=== PATIENT | female | born 1960 | race American Indian/Alaskan Native ===

== ENCOUNTER 2018-02-06 13:06 | Inpatient (IN) | payer MEDICAID ==
--- NOTE | 2018-02-06 13:28 | C.PDOC ---
History Of Present Illness 57 F w/ hx of hysterectomy, etoh + marijauan use p/w request for detox. Pt notes last drank benjamin goran this morning. No SI or HI. No chest pain or shortness of breath. No abdominal pain. No constipation or diarrhea. No dark or bloody stool. No headache, nausea or vomiting. No fever, chills or night sweats. No constipation or diarrhea. No other complaints. Time Seen by Provider: 02/06/18 13:28 Chief Complaint (Nursing): Substance Abuse Past Medical History Vital Signs: Last Vital Signs Temp 97.9 F 02/06/18 13:19 Pulse 77 02/06/18 13:19 Resp 18 02/06/18 13:19 BP 119/79 02/06/18 13:19 Pulse Ox 100 02/06/18 13:19 Family History: States: Unknown Family Hx - Social History Hx Alcohol Use: Yes Hx Substance Use: Yes - Immunization History Hx Tetanus Toxoid Vaccination: No Hx Influenza Vaccination: No Hx Pneumococcal Vaccination: No Review Of Systems Constitutional: Negative for: Fever, Chills, Sweats, Weakness, Malaise Eyes: Negative for: Pain, Eyelid Inflammation ENT: Negative for: Ear Pain, Ear Discharge, Nose Pain, Nose Congestion, Mouth Pain Cardiovascular: Negative for: Chest Pain, Palpitations, Edema Respiratory: Negative for: Cough, Shortness of Breath, SOB with Excertion, Wheezing Gastrointestinal: Negative for: Nausea, Vomiting, Abdominal Pain, Diarrhea, Constipation, Melena, Hematochezia, Hematemesis Genitourinary: Negative for: Dysuria, Frequency, Incontinence, Hematuria, Vaginal Discharge, Vaginal Bleeding, Pelvic Pain, Rash Musculoskeletal: Negative for: Neck Pain, Shoulder Pain, Back Pain Skin: Negative for: Rash, Lesions Neurological: Negative for: Weakness, Numbness, Incoordination, Change in Speech, Seizures, Headache Psych: Negative for: Anxiety, Depression, Psychosis, Suicidal ideation Physical Exam - Physical Exam Appears: Well, Non-toxic, No Acute Distress Skin: Normal Color Head: Atraumatic, Normacephalic Eye(s): bilateral: Normal Inspection, PERRL, EOMI Nose: Normal Lips: Normal Appearing Neck: Normal, Normal ROM, Supple, Other (no meningeal signs) Chest: Symmetrical Cardiovascular: Rhythm Regular Respiratory: Normal Breath Sounds Gastrointestinal/Abdominal: Normal Exam Back: Normal Inspection, No CVA Tenderness Extremity: Normal ROM, No Tenderness Extremity: Bilateral: Atraumatic Neurological/Psych: Oriented x3, Normal Speech, Normal Cognition, Normal Cranial Nerves, No Cerebellar Signs, Normal Motor Gait: Steady Extremity: Right: No Drift, Left: No Drift, Upper: No Drift, Lower: No Drift ED Course And Treatment - Laboratory Results Result Diagrams: 02/06/18 14:05 02/06/18 14:05 O2 Sat by Pulse Oximetry: 100 Medical Decision Making Medical Decision Makin yr old female p/w request for detox from etoh and marijuana use. No meningeal signs, Neuro exam unremarkable. Pending Crisis Eval and Medical clearance. EKG 68 NSR. No stemi 1552 etoh 168 labs otherwise largely unremarkable: AST elevation > ALT elevation c/w ETOH No RUQ pain. Walking well, in NAD, no signs of withdrawal or unstable gait. Medically clear accepted by Dr. New For detox per crisis. Pt in NAD and agreeable. Disposition - Disposition Disposition Time: 15:55 Condition: GOOD Forms: [facility] (Burmese) - Clinical Impression Clinical Impression: Desire for detoxification
[2018-02-06 14:21] LABS: BASO # 0.1 K/uL (0.0-0.2); BASO % 1.3 % (0.0-2.0); EOS # 0.1 K/uL (0.0-0.7); EOS % 0.8 % (0.0-4.0); HEMOGLOBIN 12.3 g/dL (11.0-16.0); LYMPH % 48.6 % (20.0-40.0); MEAN CELL VOLUME 94.1 fL (81.0-99.0); MEAN CORPUSCULAR HEMOGLOBIN 31.7 pg (27.0-31.0); MEAN CORPUSCULAR HGB CONC 33.7 g/dL (33.0-37.0); MEAN PLATELET VOLUME 10.5 fL (7.2-11.7); MONO # 0.6 K/uL (0.0-0.8); MONO % 9.2 % (0.0-10.0); NEUT # 2.4 K/uL (1.8-7.0); NEUT % 40.1 % (50.0-75.0); NRBC % 0.1 % (0.0-2.0); RBC 3.88 Mil/uL (3.80-5.20); RED CELL DISTRIBUTION WIDTH 14.8 % (11.5-14.5); WHITE BLOOD COUNT 6.1 K/uL (4.8-10.8)
[2018-02-06 14:32] LABS: ACETAMINOPHEN < 10.0 ug/mL (10.0-30.0); SALICYLATE < 1.0 mg/dL 1
[2018-02-06 14:34] LABS: ALBUMIN 4.5 g/dL (3.5-5.0); ALT/SGPT 76 U/L (9-52); AST/SGOT 107 U/L (14-36); BLOOD UREA NITROGEN 12 mg/dL (7-17); GFR NON-AFRICAN AMERICAN > 60
[2018-02-06 14:36] LABS: HCG,QUALITATIVE URINE NEGATIVE (NEGATIVE)
[2018-02-06 14:39] LABS: SQUAMOUS EPITHIAL 1 /hpf (0-5); URINE BILIRUBIN NEGATIVE (NEGATIVE); URINE BLOOD NEGATIVE (NEGATIVE); URINE CLARITY Clear (Clear); URINE COLOR Straw (YELLOW); URINE GLUCOSE (UA) NORMAL (Normal); URINE LEUKOCYTE ESTERASE NEG Leu/uL (Negative); URINE PROTEIN NEGATIVE (NEGATIVE); URINE UROBILINOGEN NORMAL mg/dL (0.2-1.0)
[2018-02-06 14:55] LABS: BARBITURATES, UR NEGATIVE (NEGATIVE); BENZODIAZEPINES, UR NEGATIVE (NEGATIVE); OPIATES, UR NEGATIVE (NEGATIVE); PHENCYCLIDINE, UR NEGATIVE (NEGATIVE)
--- NOTE | 2018-02-06 16:09 | PCM.BM ---
<Rhiannon Astudillo - Last Filed: 02/06/18 16:08> Treatment Plan Problems - Problems identified on initial assessmt Potential for alcohol withdrawal Date Initiated: 02/06/18 Time Initiated: 16:09 Assessment reference: NA Status: Active Treatment assets and liabiliti Patient Assests: ADL independent, negotiates basic needs, cognitively intact Patient Liabilities: substance abuse (THC, ETOH) - Milieu Protocol Maintain good personal hygiene: daily Encourage regular showers, daily Remind patient to perform daily oral care, daily Assist patient to perform ADL's Conduct patient checks and document Observation sheet: Q15 minutes Maintain personal safety: every shift Educate patient to report safety concerns to staff, every shift Monitor environment for contraband/sharps Medication safety: Monitor for expected outcome, potential side effects: every shift, Assess barriers to learning: every shift, Assess readiness for medication education: every shift <Noemi Saldana - Last Filed: 02/08/18 14:08> Family Contact Family involvement: Famliy/SO not involved - Goals for Treatment Patient goals for treatment: Complete detox and transition to an IOP. Discharge/Continuing Care - Education Needs Education Needs: Patient Medication, Patient Diagnosis/Disease Process, Patient Coping Skills, Patient Anger Management skills, Patient Placement options, Patient Community resources - Discharge Discharge Criteria: No longer exhibiting s/s of withdrawal, Reduction of target symptoms Discharge to:: Home - Treatment Team Participation Patient/Family/SO Statement: 02/08/18 14:09 "I guess I'll try an IOP in [place]..." Discussed with Family/SO: No Was Patient/Family/SO present at Treatment Team Meeting: Yes <Carmen Coffman - Last Filed: 02/10/18 12:49> - Diagnosis (1) Alcohol use disorder, severe, dependence Status: Acute Interventions: 02/08/18 12:49 * Assess 7x/week regarding severity of withdrawal * Educate regarding risks, benefits, side effects and alternatives of medications * Use Motivational Interviewing for abstinence * Use CBT for relapse prevention * Medication management for withdrawal symptoms * Encourage medication assisted treatment *
[2018-02-07] MEDS: Multiple Vitamins Tab PO SCH (09:17)
--- NOTE | 2018-02-07 12:07 | CARD ---
APPROVED REPORT Date of service: 02/06/2018 EKG Measurement Heart [id number] <Conclusion> Normal sinus rhythm Nonspecific ST abnormality Abnormal ECG
--- NOTE | 2018-02-07 15:00 | PCM.PSYCH ---
Initial Psychiatric Evaluation - Initial Psychiatric Evaluation Type of Admission: Voluntary Legal Status: Capacity History of Present Illness and Precipitating Events: Patient is a 57 year old female who presents to the office for a drinking problem. Patient states that she started drinking at the age of 15. She says she drinks on average, 1/5 th a bottle of vodka a day. The longest time she has not consumed alcohol was last year, and lasted for about 4 months. She reports that she has been to detox 3 times, and has been to rehab twice in her life. She states that she smokes marijuana "all the time". She has a prior history of cocaine abuse. She currently smokes a pack of cigarettes a day. The pt reports alcohol-withdrawal sxs She has a past psychiatric history of schizophrenia. Her family psychiatric history is positive for alcohol use. She currently is single, lives alone, and has one adult child who is 40 years old. She does not work and is on disability for her psychiatric issues. Her past medical history is significant for a tumor found on her liver. She is not sure what's going on with her oncological treatment. Current Medications: Active Medications Generic Name Dose Route Start Last Admin Trade Name Freq PRN Reason Stop Dose Admin Folic Acid 1 mg 02/07/18 10:00 02/07/18 09:17 Folic Acid PO 1 mg DAILY REN Administration Guaifenesin 200 mg 02/07/18 14:38 Robitussin PO Q4H PRN Cough and congestion Lorazepam 1 mg 02/06/18 16:39 Ativan PO Q4H PRN Symptoms of alcohol withdrawl Lorazepam 2 mg 02/07/18 10:00 02/07/18 09:17 Ativan PO 02/11/18 09:59 2 mg Q6H REN Administration Taper Mirtazapine 30 mg 02/06/18 22:00 02/06/18 21:27 Remeron PO 30 mg HS REN Administration Multivitamins 1 tab 02/07/18 10:00 02/07/18 09:17 Hexavitamin PO 1 tab DAILY REN Administration Nicotine 1 patch 02/07/18 14:45 02/07/18 14:51 Nicoderm Cq TD 1 patch DAILY REN Administration Quetiapine Fumarate 300 mg 02/06/18 22:00 02/06/18 21:20 Seroquel PO 300 mg HS REN Administration Thiamine HCl 100 mg 02/07/18 10:00 02/07/18 09:17 Vitamin B1 Tab PO 100 mg DAILY REN Administration Past Psychiatric History - Past Psychiatric History Previous Treatment History: Inpatient Pertinent Medical Hx (Current Medical&Sleep Prob, Allergies): Allergies Allergy/AdvReac Type Severity Reaction Status Date / Time No Known Allergies Allergy Unverified 02/06/18 13:17 Mirtazapine [Remeron Soltab] 45 mg PO DAILY 02/06/18 QUEtiapine [SEROquel] 200 mg PO DAILY 02/06/18 Review of Systems - Neurological Neurological: UNREMARKABLE - Psychiatric Psychiatric: Abnormal Sleep Pattern, Anhedonia, Anxiety, Depression, Difficulty Concentrating, Mood Swings, Paranoia. absent: Hallucinations, Homicidal Ideation, Suicidal Ideation Mental Status Examination - Personal Presentation Personal Presentation: Looks older than stated age - Affect Affect: Blunted - Motor Activity Motor Activity: Calm - Reliability in Providing Information Reliability in Providing Information: Fair - Speech Speech: Organized (slowed) - Mood Mood: Depressed, Anxious - Formal Thought Process Formal Thought Process: No Impairment - Cognitive Functions Orientation: Person, Place, Situation, Time Sensorium: Alert Attention/Concentration: Easily distracted Estimate of Intelligence: Average Judgement: Intact, as evidence by: Insight regarding need for hospitalization Memory: Recent intact, as evidence by: Ability to recall events of the day, Remote impaired as evidenced by: Inability to recall sig life events - Risk Risk: Withdrawal, Diminished functioning - Strength & Assets Inventory Strength & Assets Inventory: Cooperative ( ) - Limitations Limitations: Living alone, Other DSM 5 DX - DSM 5 DSM 5 Diagnosis: Alcohol withdrawal Alcohol use d/o - severe Cannabis use d/o - severe Schizophrenia, chronic r/o schizoaffective d/o - depressed - Recommended/Plan of Treatment Treatment Recommendations and Plan of Treatment: Ativan detox Seroquel for schiz. Remeron for depression As needed meds All risks discussed (of meds) and she agreed and understood Attend groups and activies Rehab or IOP referral Naltrexone if agrees 33 min Projected ELOS: 4-5 days
[2018-02-07] MEDS: guaiFENesin 200 mg/10 ml Syrup UD PO PRN (20:22)
[2018-02-08] MEDS: Multiple Vitamins Tab PO SCH (09:10)
[2018-02-08] MEDS: guaiFENesin 200 mg/10 ml Syrup UD PO PRN (13:40)
[2018-02-08] MEDS ORDERED: Vitamins A & D Oint UD Foilpak TOP PRN (16:25)
[2018-02-09] MEDS: guaiFENesin 200 mg/10 ml Syrup UD PO PRN ×3 (06:11→21:10)
[2018-02-09] MEDS: Multiple Vitamins Tab PO SCH (09:42)
[2018-02-10] MEDS: Multiple Vitamins Tab PO SCH (09:36)
--- NOTE | 2018-02-10 12:51 | PCM.PYCHPN ---
Psychiatric Progress Note - Psychiatric Progress Note Patient seen today, length of contact: 16 min Patient Chief Complaint: "Not good" Problems Identified/Issues Discussed: The pt is seen, chart reviewed, case discussed with staff. The pt is compliant with medications and reports no side-effects. Symptoms are improving but needs more time to stabilize. Very fatigued, not sleeping well but also dizzy in am After care discussed, support and psychoeducation given. Medication Change: Yes (detox adjusted) Medical Record Reviewed: Yes Mental Status Examination - Cognitive Function Orientation: Person, Place, Situation, Time Memory: Impaired Attention: Poor Concentration: Poor Association: WNL Fund of Knowledge: Poor - Mood Mood: Depressed, Anxious - Affect Affect: Blunted - Speech Speech: Soft - Formal Thought Process Formal Thought Process: No Impairment - Suicidal Ideation Suicidal Ideation: No - Homicidal Ideation Homicidal Ideation: No Goal/Treatment Plan - Goal/Treatment Plan Need for Continued Stay: Severe depression anxiety, Discharge may exacerbated symptoms, Severe functional impairment Progress Toward Problem(s) and Goals/Treatment Plan: Ativan detox Seroquel for schiz. Remeron for depression As needed meds All risks discussed (of meds) and she agreed and understood Attend groups and activies Rehab or IOP referral Naltrexone if agrees
[2018-02-10 14:30] VITALS: RESP 18
--- NOTE | 2018-02-10 15:46 | PCM.PYCHPN ---
Psychiatric Progress Note - Psychiatric Progress Note Patient seen today, length of contact: 16 min Medication Change: No (detox adjusted) Medical Record Reviewed: Yes Mental Status Examination - Cognitive Function Orientation: Person, Place, Situation, Time Memory: Impaired Attention: Poor Concentration: Poor Association: WNL Fund of Knowledge: Poor - Mood Mood: Depressed, Anxious - Affect Affect: Blunted - Speech Speech: Soft - Formal Thought Process Formal Thought Process: No Impairment - Suicidal Ideation Suicidal Ideation: No - Homicidal Ideation Homicidal Ideation: No Goal/Treatment Plan - Goal/Treatment Plan Need for Continued Stay: Severe depression anxiety, Discharge may exacerbated symptoms, Severe functional impairment
[2018-02-10] MEDS: guaiFENesin 200 mg/10 ml Syrup UD PO PRN (17:24)
--- NOTE | 2018-02-10 17:35 | CP.PCM.CON ---
<Destiney Gonzalez - Last Filed: 02/10/18 18:12> History of Present Illness - History of Present Illness History of Present Illness: PGY-[address] Perez's service Patient is a 57 yo female with past medical history of Hepatitis C, liver tumor, substance abuse, tobacco use disorder, schizoaffective and schizophrenia admitted to psych unit for alcohol detox. Patient reports ongoing chest pain for past two days. Patient states the pain goes down her arms at times with nausea. Patient states she has no shortness of breath associated with these episodes, diaphoresis, or shortness of breath. Patient states it feels like a pressure like pain located left of the 3rd intercostal space. Patient states that she has never had similar episodes in the past. Patient states the pain lasted only a minute or two in the shower when it first started. PMH- Hepatitis C, liver tumor, substance abuse, tobacco use disorder, schizoaffective and schizophrenia PSH- Denies Allergies- NKDA Meds- Denies FH- Mom (DM, from cancer); Father ( from cancer) Social: 40 pack year tobacco history, 1/5th of vodka a day, admits to marijuana and prior cocain use Review of Systems - Review of Systems Review of Systems: 12 point ROS noted and listed as in HPI Past Patient History - Past Medical History & Family History Past Medical History?: Yes - Past Social History Smoking Status: Heavy Smoker > 10 Cigarettes Daily - CARDIAC Hx Cardiac Disorders: No (Patient denied) Hx Hypertension: No (Patient denied) - PULMONARY Hx Tuberculosis: No (Patient denied) - NEUROLOGICAL HX Cerebrovascular Accident: No (Patient denied) Hx Seizures: No (Patient denied) - HEMATOLOGICAL/ONCOLOGICAL Hx Cancer: No (Patient denied) Hx Human Immunodeficiency Virus (HIV): No (Patient denied) - MUSCULOSKELETAL/RHEUMATOLOGICAL Hx Falls: No - GASTROINTESTINAL Other/Comment: "bad liver" - GENITOURINARY/GYNECOLOGICAL Hx Sexually Transmitted Disorders: No (Patient denied) - PSYCHIATRIC Hx Substance Use: Yes - ANESTHESIA Hx Anesthesia: Yes Hx Anesthesia Reactions: No Meds Allergies/Adverse Reactions: Allergies Allergy/AdvReac Type Severity Reaction Status Date / Time No Known Allergies Allergy Unverified 02/06/18 13:17 - Medications Medications: Current Medications Folic Acid (Folic Acid) 1 mg PO DAILY REN Last Admin: 02/10/18 09:36 Dose: 1 mg Guaifenesin (Robitussin) 200 mg PO Q4H PRN PRN Reason: Cough and congestion Last Admin: 02/10/18 17:24 Dose: 200 mg Lorazepam (Ativan) 1 mg PO Q4H PRN PRN Reason: Symptoms of alcohol withdrawl Last Admin: 02/09/18 06:11 Dose: 1 mg Lorazepam (Ativan) 1 mg PO BID [facility] Stop: 02/11/18 10:01 Last Admin: 02/10/18 17:24 Dose: 1 mg Mirtazapine (Remeron) 30 mg PO HS [facility] Last Admin: 02/09/18 21:18 Dose: 30 mg Multivitamins (Hexavitamin) 1 tab PO DAILY [facility] Last Admin: 02/10/18 09:36 Dose: 1 tab Nicotine (Nicoderm Cq) 1 patch TD DAILY [facility] Last Admin: 02/10/18 09:36 Dose: 1 patch Quetiapine Fumarate (Seroquel) 200 mg PO HS [facility] Last Admin: 02/09/18 21:10 Dose: 200 mg Thiamine HCl (Vitamin B1 Tab) 100 mg PO DAILY [facility] Last Admin: 02/10/18 09:36 Dose: 100 mg Vitamin A (Vitamin A & D Oint Ud Foilpak) 1 ea TOP Q8 PRN PRN Reason: Dry skin Last Admin: 02/08/18 17:38 Dose: 1 ea Physical Exam - Constitutional Appears: Non-toxic, No Acute Distress - Head Exam Head Exam: NORMAL INSPECTION, NORMOCEPHALIC - Eye Exam Eye Exam: EOMI, Normal appearance. absent: Nystagmus, Scleral icterus - Respiratory Exam Respiratory Exam: Clear to Auscultation Bilateral, NORMAL BREATHING PATTERN. absent: Rales, Rhonchi, Wheezes - Cardiovascular Exam Cardiovascular Exam: REGULAR RHYTHM, +S1, +S2 - GI/Abdominal Exam GI & Abdominal Exam: Normal Bowel Sounds, Soft. absent: Distended, Firm, Guarding, Tenderness - Extremities Exam Extremities exam: Positive for: normal inspection. Negative for: calf tenderness, pedal edema - Neurological Exam Neurological exam: Alert, Oriented x3 - Psychiatric Exam Psychiatric exam: Normal Affect, Normal Mood - Skin Skin Exam: Intact, Normal Color Results - Vital Signs Recent Vital Signs: Last Vital Signs Temp 98.6 F 02/10/18 17:13 Pulse 87 02/10/18 17:13 Resp 18 02/10/18 17:13 BP 126/82 02/10/18 17:13 Pulse Ox 98 02/10/18 17:13 - Labs Result Diagrams: 02/06/18 14:05 02/06/18 14:05 Assessment & Plan - Assessment and Plan (Free Text) Assessment: Patient is a 57 yo female with substance and alcohol use disorder, schizophrenia, hepatitis C, and liver tumor admitted for alcohol detox. Medicine was consulted for chest pain and abnormal EKG. Plan: Chest Pain Cardiology consulted- Dr. Brandt- recommendations appreciated EKG shows NSR with anteriorlateral infarct age undetermined Troponin x 1 pending Aspirin 325mg x1 CBC/CMP pending Echo pending Repeat EKG pending Lipid panel pendin Hemodynamically stable <Petra Perez - Last Filed: 02/11/18 11:43> Results - Vital Signs Recent Vital Signs: Last Vital Signs Temp 97.9 F 02/11/18 09:00 Pulse 67 02/11/18 09:00 Resp 18 02/11/18 09:00 BP 124/82 02/11/18 09:00 Pulse Ox 97 02/11/18 09:00 - Labs Result Diagrams: 02/10/18 19:15 02/10/18 19:15 Labs: Laboratory Results - last 24 hr 02/10/18 02/10/18 02/11/18 19:15 19:15 00:55 WBC 4.4 L RBC 4.19 Hgb 13.2 Hct 39.4 MCV 94.2 MCH 31.5 H MCHC 33.4 RDW 14.8 H Plt Count 56 L D MPV 10.3 Neut % (Auto) 34.1 L Lymph % (Auto) 48.1 H Stanley % (Auto) 14.4 H Eos % (Auto) 2.4 Baso % (Auto) 1.0 Neut # (Auto) 1.5 L Lymph # (Auto) 2.1 Stanley # (Auto) 0.6 Eos # (Auto) 0.1 Baso # (Auto) 0.0 Sodium 141 Potassium 4.5 Chloride 103 Carbon Dioxide 30 Anion Gap 12 BUN 14 Creatinine 0.7 Est GFR ( Amer) > 60 Est GFR (Non-Af Amer) > 60 Random Glucose 99 Calcium 10.0 Phosphorus 4.7 H Magnesium 1.9 Total Bilirubin 0.7 AST 89 H ALT 77 H Alkaline Phosphatase 177 H Total Creatine Kinase 21 L CK-MB (Mass) < 0.22 Troponin I < 0.0120 0.0170 Total Protein 8.4 H Albumin 4.2 Globulin 4.2 H Albumin/Globulin Ratio 1.0 Triglycerides 133 Cholesterol 170 LDL Cholesterol Direct 128 HDL Cholesterol 29 L Attending/Attestation - Attestation I have personally seen and examined this patient.: Yes I have fully participated in the care of the patient.: Yes I have reviewed all pertinent clinical information: Yes Notes (Text): patient was seen and examined by me. History taken from the patient noncompliance with medical follow up.Ask to establish care with a medical clinic to get treatment for her liver disease,hep c and psychiatry issues I agree with the resident's documentation
[2018-02-10 19:23] LABS: EOS # 0.1 K/uL (0.0-0.7); EOS % 2.4 % (0.0-4.0); HEMOGLOBIN 13.2 g/dL (11.0-16.0); LYMPH # 2.1 K/uL (1.0-4.3); LYMPH % 48.1 % (20.0-40.0); MEAN CELL VOLUME 94.2 fL (81.0-99.0); MEAN CORPUSCULAR HEMOGLOBIN 31.5 pg (27.0-31.0); MEAN CORPUSCULAR HGB CONC 33.4 g/dL (33.0-37.0); MEAN PLATELET VOLUME 10.3 fL (7.2-11.7); MONO # 0.6 K/uL (0.0-0.8); MONO % 14.4 % (0.0-10.0); NEUT # 1.5 K/uL (1.8-7.0); NEUT % 34.1 % (50.0-75.0); NRBC % 0.1 % (0.0-2.0); RBC 4.19 Mil/uL (3.80-5.20); RED CELL DISTRIBUTION WIDTH 14.8 % (11.5-14.5); WHITE BLOOD COUNT 4.4 K/uL (4.8-10.8)
[2018-02-10 19:42] LABS: LDL CHOLESTEROL 128 mg/dL (0-129)
[2018-02-10 19:46] LABS: ALBUMIN 4.2 g/dL (3.5-5.0); ALT/SGPT 77 U/L (9-52); AST/SGOT 89 U/L (14-36); BLOOD UREA NITROGEN 14 mg/dL (7-17); GFR NON-AFRICAN AMERICAN > 60; HDL CHOLESTEROL 29 mg/dL (30-70)
[2018-02-11 02:20] LABS: CK-MB < 0.22 ng/mL (0.0-3.38)
--- NOTE | 2018-02-11 07:51 | CP.PCM.CON ---
History of Present Illness - History of Present Illness History of Present Illness: 57 yo female with h/o ETOH abuse, liver cirrhosis, liver mass, currently admitted to inpatient ETOH detox. Developed chest pain yesterday, described as sharp, stabbing sensation, lasting few minuted, intermittent, not associated with diaphoresis. States never had chest pain in the past. ambulates little at baseline, complains of leg pain with ambulation, but no chest pain. Smoker, 1/2 ppd x 30 years FH CAD: mother Review of Systems - Review of Systems Review of Systems: all others are negative except HPI Past Patient History - Past Medical History & Family History Past Medical History?: Yes - Past Social History Smoking Status: Heavy Smoker > 10 Cigarettes Daily - CARDIAC Hx Cardiac Disorders: No (Patient denied) Hx Hypertension: No (Patient denied) - PULMONARY Hx Tuberculosis: No (Patient denied) - NEUROLOGICAL HX Cerebrovascular Accident: No (Patient denied) Hx Seizures: No (Patient denied) - HEMATOLOGICAL/ONCOLOGICAL Hx Cancer: No (Patient denied) Hx Human Immunodeficiency Virus (HIV): No (Patient denied) - MUSCULOSKELETAL/RHEUMATOLOGICAL Hx Falls: No - GASTROINTESTINAL Other/Comment: "bad liver" - GENITOURINARY/GYNECOLOGICAL Hx Sexually Transmitted Disorders: No (Patient denied) - PSYCHIATRIC Hx Substance Use: Yes - ANESTHESIA Hx Anesthesia: Yes Hx Anesthesia Reactions: No Meds Allergies/Adverse Reactions: Allergies Allergy/AdvReac Type Severity Reaction Status Date / Time No Known Allergies Allergy Unverified 02/06/18 13:17 - Medications Medications: Current Medications Folic Acid (Folic Acid) 1 mg PO DAILY [facility] Last Admin: 02/10/18 09:36 Dose: 1 mg Guaifenesin (Robitussin) 200 mg PO Q4H PRN PRN Reason: Cough and congestion Last Admin: 02/10/18 17:24 Dose: 200 mg Lorazepam (Ativan) 1 mg PO Q4H PRN PRN Reason: Symptoms of alcohol withdrawl Last Admin: 02/09/18 06:11 Dose: 1 mg Lorazepam (Ativan) 1 mg PO BID REN Stop: 02/11/18 10:01 Last Admin: 02/10/18 17:24 Dose: 1 mg Mirtazapine (Remeron) 30 mg PO HS REN Last Admin: 02/10/18 21:54 Dose: 30 mg Multivitamins (Hexavitamin) 1 tab PO DAILY [facility] Last Admin: 02/10/18 09:36 Dose: 1 tab Nicotine (Nicoderm Cq) 1 patch TD DAILY [facility] Last Admin: 02/10/18 09:36 Dose: 1 patch Nitroglycerin (Nitrostat Sl Tab) 0.4 mg SL Q5M PRN PRN Reason: Pain, moderate (4-7) Ondansetron HCl (Zofran Tab) 4 mg PO Q8H PRN PRN Reason: nausea Quetiapine Fumarate (Seroquel) 200 mg PO HS [facility] Last Admin: 02/10/18 21:39 Dose: 200 mg Thiamine HCl (Vitamin B1 Tab) 100 mg PO DAILY [facility] Last Admin: 02/10/18 09:36 Dose: 100 mg Vitamin A (Vitamin A & D Oint Ud Foilpak) 1 ea TOP Q8 PRN PRN Reason: Dry skin Last Admin: 02/08/18 17:38 Dose: 1 ea Physical Exam - Constitutional Appears: Non-toxic - Head Exam Head Exam: ATRAUMATIC, NORMOCEPHALIC - Eye Exam Eye Exam: EOMI Pupil Exam: PERRL - Neck Exam Neck exam: Positive for: Full Rom - Respiratory Exam Respiratory Exam: Clear to Auscultation Bilateral, NORMAL BREATHING PATTERN - Cardiovascular Exam Cardiovascular Exam: REGULAR RHYTHM, RRR, +S1, +S2. absent: JVD - GI/Abdominal Exam GI & Abdominal Exam: Soft. absent: Tenderness - Extremities Exam Extremities exam: Negative for: calf tenderness - Neurological Exam Neurological exam: Alert, CN II-XII Intact, Oriented x3 - Psychiatric Exam Psychiatric exam: Normal Affect - Skin Skin Exam: Normal Color, Warm - Additional Findings Additional findings: Reproducible chest pain over the left anterior chest wall Results - Vital Signs Recent Vital Signs: Last Vital Signs Temp 97.7 F 02/11/18 06:14 Pulse 76 02/11/18 06:14 Resp 18 02/11/18 06:14 BP 121/80 02/11/18 06:14 Pulse Ox 98 02/11/18 06:14 - Labs Result Diagrams: 02/10/18 19:15 02/10/18 19:15 Labs: Laboratory Results - last 24 hr 02/10/18 02/10/18 02/11/18 19:15 19:15 00:55 WBC 4.4 L RBC 4.19 Hgb 13.2 Hct 39.4 MCV 94.2 MCH 31.5 H MCHC 33.4 RDW 14.8 H Plt Count 56 L D MPV 10.3 Neut % (Auto) 34.1 L Lymph % (Auto) 48.1 H [place] % (Auto) 14.4 H Eos % (Auto) 2.4 Baso % (Auto) 1.0 Neut # (Auto) 1.5 L Lymph # (Auto) 2.1 [place] # (Auto) 0.6 Eos # (Auto) 0.1 Baso # (Auto) 0.0 Sodium 141 Potassium 4.5 Chloride 103 Carbon Dioxide 30 Anion Gap 12 BUN 14 Creatinine 0.7 Est GFR ( Amer) > 60 Est GFR (Non-Af Amer) > 60 Random Glucose 99 Calcium 10.0 Phosphorus 4.7 H Magnesium 1.9 Total Bilirubin 0.7 AST 89 H ALT 77 H Alkaline Phosphatase 177 H Total Creatine Kinase 21 L CK-MB (Mass) < 0.22 Troponin I < 0.0120 0.0170 Total Protein 8.4 H Albumin 4.2 Globulin 4.2 H Albumin/Globulin Ratio 1.0 Triglycerides 133 Cholesterol 170 LDL Cholesterol Direct 128 HDL Cholesterol 29 L - EKG Data EKG comments: my review: NSR, anteroseptal Q waves Assessment & Plan (1) Other chest pain Assessment and Plan: Reproducible chest pain on the exam ACS ruled out EKG unchanged from admission, suggestive of possibly old VA? Hemodynamically stable and asymptomatic at present Risks for CAD, including smoking and FH CAD Would benefit from ischemia work-up, which can be performed as outpatient Stable from cardiology perspective May follow up with this cardiology group Status: Acute (2) Abnormal EKG Assessment and Plan: EKG with anteroseptal Q waves Unchanged from admission Status: Acute
--- NOTE | 2018-02-11 08:33 | PCM.PYCHDC ---
Mental Status Examination - Mental Status Examination Orientation: Person, Place, Situation, Time Memory: Intact Mood: Anxious Affect: Constricted Speech: Appropriate Attention: WNL Concentration: WNL Association: WNL Fund of Knowledge: WNL Formal Thought Process: No Impairment Suicidal Ideation: No Current Homicidal Ideation?: No Discharge Summary - Discharge Note Laboratory Data: Abnormal Lab Results 02/10/18 02/10/18 02/11/18 19:15 19:15 00:55 WBC 4.4 L RBC 4.19 Hgb 13.2 Hct 39.4 MCV 94.2 MCH 31.5 H MCHC 33.4 RDW 14.8 H Plt Count 56 L D MPV 10.3 Neut % (Auto) 34.1 L Lymph % (Auto) 48.1 H [place] % (Auto) 14.4 H Eos % (Auto) 2.4 Baso % (Auto) 1.0 Neut # (Auto) 1.5 L Lymph # (Auto) 2.1 [place] # (Auto) 0.6 Eos # (Auto) 0.1 Baso # (Auto) 0.0 Sodium 141 Potassium 4.5 Chloride 103 Carbon Dioxide 30 Anion Gap 12 BUN 14 Creatinine 0.7 Est GFR ( Amer) > 60 Est GFR (Non-Af Amer) > 60 Random Glucose 99 Calcium 10.0 Phosphorus 4.7 H Magnesium 1.9 Total Bilirubin 0.7 AST 89 H ALT 77 H Alkaline Phosphatase 177 H Total Creatine Kinase 21 L CK-MB (Mass) < 0.22 Troponin I < 0.0120 0.0170 Total Protein 8.4 H Albumin 4.2 Globulin 4.2 H Albumin/Globulin Ratio 1.0 Triglycerides 133 Cholesterol 170 LDL Cholesterol Direct 128 HDL Cholesterol 29 L Consultations:: List each consultation separately and include: 1. Reason for request. 2. Findings. 3. Follow-up Summary of Hospital Course include:: 1. Description of specific treatment plan utilized for patients during their course of treatmen. 2. Summarize the time- course for resolution of acute symptoms and/or regressed behaviors. 3. Describe issues identified and worked on during hospitalization. 4. Describe medication utilized. 5. Describe medical problems identified and treated. 6. Reassessment of suicide risk Summary of Hospital Course: Patient is a 57 year old female who presents to the office for a drinking problem. Patient states that she started drinking at the age of 15. She says she drinks on average, 1/5 th a bottle of vodka a day. The longest time she has not consumed alcohol was last year, and lasted for about 4 months. She reports that she has been to detox 3 times, and has been to rehab twice in her life. She states that she smokes marijuana "all the time". She has a prior history of cocaine abuse. She currently smokes a pack of cigarettes a day. The pt reports alcohol-withdrawal sxs She has a past psychiatric history of schizophrenia. Her family psychiatric history is positive for alcohol use. She currently is single, lives alone, and has one adult child who is 40 years old. She does not work and is on disability for her psychiatric issues. Her past medical history is significant for a tumor found on her liver. She is not sure what's going on with her oncological treatment. On Admission: Hospital course: The pt was admitted and started on treatment with psychotherapy, support, psychoeducation and medications. [place] and CBT used. The pt attended groups and activities, as well as milieu therapy. All the risks and benefits of medications are discussed and the patient understood and agreed. The pt improved with the treatments provided. After care discussed with the patient. She will attend [facility]. - Diagnosis (1) Alcohol use disorder, severe, dependence Status: Acute - Final Diagnosis (DSM 5) Condition upon Discharge: GOOD DSM 5: Alcohol withdrawal Alcohol use d/o - severe Cannabis use d/o - severe Schizophrenia, chronic r/o schizoaffective d/o - depressed Disposition: HOME/ ROUTINE Follow-up Treatment Plan: Continue below medications after discharge. Follow after care plan as discussed. Use relapse prevention skills Return to ER or call 911 if suicidal, homicidal or symptoms relapse. Stay away from stress, alcohol and drugs. See primary doctor regularly and get labs. Prescriptions/Medication Reconciliation: Aspirin [Aspirin Chewable] 324 mg PO ONCE #30 chew hydrOXYzine HCl [Atarax] 25 mg PO DAILY PRN #30 tab PRN Reason: Anxiety Mirtazapine [Remeron] 30 mg PO HS #30 tab QUEtiapine [SEROquel] 200 mg PO HS #30 tab
[2018-02-11] MEDS: Multiple Vitamins Tab PO SCH (09:58)
[2018-02-11 10:11] VITALS: BP 124/82; PULSE 67; TEMP 97.9; O2SAT 97
--- NOTE | 2018-02-11 22:53 | CARD ---
APPROVED REPORT Date of service: 02/11/2018 EXAM: Two-dimensional and M-mode echocardiogram with Doppler and color Doppler. Other Information Quality : GoodRhythm : INDICATION Chest Pain ETOH 2D DIMENSIONS IVSd0.8 (0.7-1.1cm)LVDd3.5 (3.9-5.9cm) PWd0.8 (0.7-1.1cm)LA Lcmmvr38 (18-58mL) LVDs2.1 (2.5-4.0cm)FS (%) 40.1 % LVEF (%)71.8 (>50%)LVEF (White's)64.39 % M-Mode DIMENSIONS Left Atrium (MM)2.75 (2.5-4.0cm)IVSd0.79 (0.7-1.1cm) Aortic Root2.90 (2.2-3.7cm)LVDd4.34 (4.0-5.6cm) Aortic Cusp Exc.1.82 (1.5-2.0cm)PWd0.88 (0.7-1.1cm) FS (%) 36 %LVDs2.76 (2.0-3.8cm) TAPSE20.29 cmLVEF (%)66 (>50%) Mitral Valve MV E Athgvzdb12.0cm/sMV A Zxtqxlpe50.2cm/sE/A ratio0.9 TDI Lateral E' Peak V6.22cm/sMedial E' Peak V6.93cm/sE/Lateral E'7.4 E/Medial E'6.6 LEFT VENTRICLE The left ventricle is normal size. There is normal left ventricular wall thickness. Left ventricle systolic function is normal. The Ejection Fraction is 65-70%. There is normal LV segmental wall motion. The left ventricular diastolic function is abnormal. Grade I-abnormal relaxation pattern. No left ventricle thrombus noted on this study. There is no ventricular septal defect visualized. RIGHT VENTRICLE The right ventricle is normal size. The right ventricular systolic function is normal. ATRIA The left atrium size is normal. The right atrium size is normal. AORTIC VALVE The aortic valve opens well. The aortic valve is mildly sclerotic. The aortic valve is trileaflet. No aortic regurgitation is present. There is no aortic valvular stenosis. There is no aortic valvular vegetation. MITRAL VALVE Mitral annular calcification is mild. There is no evidence of mitral valve prolapse. There is no mitral valve stenosis. There is no mitral valve regurgitation noted. TRICUSPID VALVE The tricuspid valve is normal in structure. There is no tricuspid valve regurgitation noted. There is no tricuspid valve prolapse or vegetation. There is no tricuspid valve stenosis. PULMONIC VALVE The pulmonic valve is not well visualized. There is no pulmonic valvular regurgitation. GREAT VESSELS The aortic root is normal in size. The IVC is normal in size and collapses >50% with inspiration. PERICARDIAL EFFUSION There is no pericardial effusion. There is no pleural effusion. <Conclusion> The left ventricle is normal size. Left ventricle systolic function is normal. The Ejection Fraction is 65-70%. The left ventricular diastolic function is abnormal. Grade I-abnormal relaxation pattern. The right ventricle is normal size. The right ventricular systolic function is normal. The left atrium size is normal. The right atrium size is normal. Normal valves.
--- NOTE | 2018-02-12 14:15 | CARD ---
APPROVED REPORT Date of service: 02/10/2018 EKG Measurement Heart [id number] <Conclusion> Normal sinus rhythm Anterolateral infarct, age undetermined Abnormal ECG
--- NOTE | 2018-02-12 14:15 | CARD ---
APPROVED REPORT Date of service: 02/10/2018 EKG Measurement Heart [id number] <Conclusion> Normal sinus rhythm Anterolateral infarct, age undetermined Abnormal ECG
== END 2018-02-11 11:15 | disposition home or self-care (01) | DRG 750 ==
LOC: C.ER 13:06 → C.7D 15:53
PROC: HZ2ZZZZ Detoxification Services for Substance Abuse Treatment (ICD-10-PCS; principal; 2018-02-06)
PROC: GZHZZZZ Group Psychotherapy (ICD-10-PCS; 2018-02-06)
PROC: GZ58ZZZ Individual Psychotherapy, Cognitive-Behavioral (ICD-10-PCS; 2018-02-06)
PROC: GZ56ZZZ Individual Psychotherapy, Supportive (ICD-10-PCS; 2018-02-06)
DX: F10.239 Alcohol dependence with withdrawal, unspecified (principal); K74.60 Unspecified cirrhosis of liver; B19.20 Unspecified viral hepatitis C without hepatic coma; F25.1 Schizoaffective disorder, depressive type; F12.90 Cannabis use, unspecified, uncomplicated; F17.210 Nicotine dependence, cigarettes, uncomplicated; F32.9 Major depressive disorder, single episode, unspecified; R16.0 Hepatomegaly, not elsewhere classified; F14.10 Cocaine abuse, uncomplicated; R07.9 Chest pain, unspecified; R42 Dizziness and giddiness; Z83.3 Family history of diabetes mellitus; Z82.49 Family history of ischemic heart disease and other diseases of the circulatory system; Y90.6 Blood alcohol level of 120-199 mg/100 ml